=== PATIENT | female | born 2000 | race Caucasian/White ===

== ENCOUNTER 2020-03-13 09:00 | Outpatient (CLI) | payer OTHER, SELFPAY ==
--- NOTE | ~2020-03-13 | DEXA_ITS ---
Bone Density Report Name: Lizzie Crain Age: 19 Sex: Female Ethnicity: White Date of : 2000 Indication: prior fracture; history of hereditary osteoporosis Referring Provider: KAHLIL EMERY Study: Bone densitometry was performed. Exam Date: March 13, 2020 Accession number: [id number] Bone Density: Region BMD T-score Z-score Classification AP Spine (L1-L4) 0.812 -2.1 -1.9 Osteopenia Femoral Neck (Left) 0.697 -1.4 -1.4 Osteopenia Total Hip (Left) 0.850 -0.8 -0.8 Normal Total Hip Bilateral Avg 0.847 -0.8 -0.8 Normal Femoral Neck (Right) 0.648 -1.8 -1.8 Osteopenia Total Hip (Right) 0.843 -0.8 -0.8 Normal World Health Organization criteria for BMD impression classify patients as: Normal (T-score at or above -1.0), Osteopenia (T-score between -1.0 and -2.5), or Osteoporosis (T-score at or below -2.5). 10-year Fracture Risk: FRAX not reported because: Premenopausal woman Clinical Information Provided by Patient: Has had a low trauma fracture Patient maximum height was 68 Drinks caffeinated beverages Onset of menses at age 9 Premenopausal Number of children 0 Impression: The patient's bone mass is within expected range for age, gender and ethnicity. The patient has risk factors, including: previous fracture. Discussion: BONE DENSITY IS WITHIN EXPECTED LIMITS FOR AGE, SEX AND RACE. Bone density is within expected limits for age, sex and race at all sites measured. The patient should follow a healthful lifestyle (good nutrition with adequate calcium and vitamin D, and appropriate weight-bearing exercise). Follow-Up: Consider repeating this study in 2 to 3 years to reassess this patient's status, or sooner if there is some new clinical indication. Reported by: DHEERAJ on 03/13/2020 9:42:00 AM. Reviewed, dictated and finalized at location [facility]
== END 2020-03-13 09:01 | disposition home or self-care (01) ==
PROVIDERS: Visit Provider Orthopaedic Surgery
DX: M81.0 Age-related osteoporosis without current pathological fracture (principal); M85.88 Other specified disorders of bone density and structure, other site; M85.852 Other specified disorders of bone density and structure, left thigh; M85.851 Other specified disorders of bone density and structure, right thigh
CPT/HCPCS: 77080